=== PATIENT | male | born 1940 | race Caucasian/White ===

== ENCOUNTER 2017-08-14 03:57 | Emergency (ER) | payer MEDICARE ==
[~2017-08-14] VITALS: Ht 182.9 cm; Wt 103.7 kg
[~2017-08-14 03:57] MED LIST: ASPI-1265 PO; CALC-1050 PO; FOLI1TAB16 PO; LISI-600 PO; LOPE-144; METO50TA7 PO; MULT-1074 PO; OMEP-84 PO; THI100T PO; VITC500T PO; ZOLP-183 PO
[2017-08-14] MEDS ORDERED: aspirin 81mg tab.chew PO ONE (04:20)
[2017-08-14 04:42] LABS: BASOPHILS % (AUTO) 0.4 % (0-1); EOSINOPHILS # (AUTO) 0.5 X10'3 (0-0.9); EOSINOPHILS % (AUTO) 6.1 % (0-6); HEMATOCRIT 41.7 % (42.0-52.0); HEMOGLOBIN 14.5 g/dl (14.0-17.9); LYMPHOCYTES # (AUTO) 1.6 X10'3 (1.1-4.8); LYMPHOCYTES % (AUTO) 21.1 % (21-51); MEAN CORPUSCULAR HGB CONC 34.7 % (33.0-36.5); MEAN CORPUSCULAR VOLUME 89.4 FL (78-98); MEAN PLATELET VOLUME 10.4 FL (7.4-10.4); MONOCYTES # (AUTO) 0.8 X10'3 (0-0.9); MONOCYTES % (AUTO) 10.5 % (2-12); NEUTROPHILS # (AUTO) 4.6 X10'3 (1.8-7.7); NEUTROPHILS % (AUTO) 61.9 % (42-75); PLATELET COUNT 183 X10'3 (140-440); RED BLOOD COUNT 4.66 X10'6 (4.70-6.10); RED CELL DISTRIBUTION WIDTH 13.7 % (11.5-14.5); WHITE BLOOD COUNT 7.5 X10'3 (4.5-11.0)
[2017-08-14 05:05] LABS: ALANINE AMINOTRANSFERASE 35 U/L (12-78); ALBUMIN 3.5 G/DL (3.4-5.0); ALBUMIN/GLOBULIN RATIO 1.2 (1.1-1.5); ALKALINE PHOSPHATASE 57 IU/L (46-116); ANION GAP 8 (8-16); ASPARTATE AMINO TRANSFERASE 18 U/L (10-37); BILIRUBIN,TOTAL 0.5 MG/DL (0.1-1.0); BLOOD UREA NITROGEN 17 MG/DL (7-18); BUN/CREATININE RATIO 19.1 (5.4-32.0); CALCIUM 8.3 MG/DL (8.5-10.1); CHLORIDE 109 MMOL/L (99-107); CREATININE 0.89 MG/DL (0.60-1.10); GLUCOSE 115 MG/DL (70-104); POTASSIUM 4.3 MMOL/L (3.5-5.1); SODIUM 143 MMOL/L (135-145); TOTAL CARBON DIOXIDE 25.6 MMOL/L (24-32); TOTAL PROTEIN 6.5 G/DL (6.4-8.2); eGFR 83 ML/MIN
[2017-08-14] MEDS ORDERED: SIME125T7 PO (05:12)
[2017-08-14] MEDS ORDERED: SOTA80TA69 PO (05:12)
[2017-08-14] MEDS ORDERED: VITA1CAP (05:12)
[2017-08-14] MEDS ORDERED: FERR324T4 PO (05:12)
[2017-08-14] MEDS ORDERED: HYDR-565 PO (05:12)
[2017-08-14] MEDS ORDERED: CEPH500T PO (05:12)
[2017-08-14 05:33] LABS: D-DIMER < 0.19 MG/L FEU (0-0.50)
[2017-08-14] MEDS ORDERED: LORA-512 PO (05:34)
[2017-08-14] MEDS ORDERED: KEN0.1O TP (05:34)
[2017-08-14] MEDS ORDERED: ECON15CR2 TP (05:34)
[2017-08-14] MEDS ORDERED: WARF5TAB7 PO (05:34)
[2017-08-14] MEDS ORDERED: MICO57CR2 TP (05:34)
[2017-08-14] MEDS ORDERED: COU7.5T PO (05:34)
[2017-08-14] MEDS ORDERED: LORA1TAB PO (05:34)
[2017-08-14] MEDS ORDERED: HYDR28CR29 (05:34)
[2017-08-14] MEDS ORDERED: DOXY25PO2 (05:34)
[2017-08-14 05:37] VITALS: BP 126/68
[2017-08-14 07:07] LABS: LARGE PLATELETS FEW; PLATELET ESTIMATE NORMAL
== END 2017-08-14 06:28 | disposition home or self-care (01) ==
LOC: ER 03:58
DX: R00.2 Palpitations (principal); I48.91 Unspecified atrial fibrillation; E78.00 Pure hypercholesterolemia, unspecified; I50.9 Heart failure, unspecified; Z95.1 Presence of aortocoronary bypass graft; Z79.01 Long term (current) use of anticoagulants
CPT/HCPCS: 36415; 71045; 80053; 83735; 83880; 84484; 85025; 85379; 93005; 99285

== ENCOUNTER 2018-08-08 12:46 | Emergency (ER) | payer MEDICARE ==
[~2018-08-08] VITALS: Ht 182.9 cm; Wt 100.0 kg
[~2018-08-08 12:46] MED LIST changes: -ASPI-1265 PO; +CEPH500T PO; +COU7.5T PO; +DOXY25PO2; +ECON15CR2 TP; +FERR324T4 PO; -FOLI1TAB16 PO; +HYDR-4353 PO; +HYDR28CR29; +KEN0.1O TP; -LISI-600 PO; +LORA-512 PO; +LORA1TAB PO; -METO50TA7 PO; +MICO57CR2 TP; +SIME125T7 PO; +SOTA80TA73 PO; -THI100T PO; +VITA1CAP; +WARF-55 PO
[2018-08-08] MEDS ORDERED: normal saline 1000ML IV soln IVB ONE (13:00)
[2018-08-08 13:26] LABS: BASOPHILS # (AUTO) 0.1 X10'3 (0-0.2); BASOPHILS % (AUTO) 1.1 % (0-1); EOSINOPHILS # (AUTO) 0.3 X10'3 (0-0.9); HEMATOCRIT 46.2 % (42.0-52.0); LYMPHOCYTES # (AUTO) 1.4 X10'3 (1.1-4.8); MONOCYTES # (AUTO) 0.5 X10'3 (0-0.9); NEUTROPHILS # (AUTO) 5.8 X10'3 (1.8-7.7); RED BLOOD COUNT 5.05 X10'6 (4.70-6.10)
[2018-08-08 13:28] LABS: EOSINOPHILS % (AUTO) 3.5 % (0-6); HEMOGLOBIN 15.3 g/dl (14.0-17.9); LYMPHOCYTES % (AUTO) 17.4 % (21-51); MEAN CORPUSCULAR HEMOGLOBIN 30.3 PG (27.0-31.0); MEAN CORPUSCULAR HGB CONC 33.1 g/dL (33.0-36.5); MEAN CORPUSCULAR VOLUME 91.5 FL (78-98); MEAN PLATELET VOLUME 10.9 FL (7.4-10.4); MONOCYTES % (AUTO) 6.3 % (2-12); NEUTROPHILS % (AUTO) 71.7 % (42-75); PLATELET COUNT 242 X10'3 (140-440); RED CELL DISTRIBUTION WIDTH 12.9 % (11.5-14.5); WHITE BLOOD COUNT 8.1 X10'3 (4.5-11.0)
[2018-08-08 13:43] LABS: INR 3.3 INR; PARTIAL THROMBOPLASTIN TIME 47 SECONDS (22-32); PROTHROMBIN TIME 31.2 SECONDS (9.0-12.0)
[2018-08-08 14:03] LABS: CLARITY,URINE SLIGHTLY CLOUDY (Clear); COLOR,URINE YELLOW (Yellow); GLUCOSE, URINE NEGATIVE (Neg); KETONES,URINE NEGATIVE (Neg); LEUKOCYTE ESTERASE ,URINE MODERATE (Neg); NITRITES, URINE POSITIVE (Neg); OCCULT BLOOD,URINE SMALL (Neg); PROTEIN,URINE NEGATIVE (Neg); UROBILINOGEN,URINE 0.2 E.U/dL (0.2-1.0)
[2018-08-08 14:04] LABS: UA COLLECTION TYPE FOLEY CATH
[2018-08-08] MEDS ORDERED: meclizine 12.5mg tablet PO ONE (14:05)
[2018-08-08] MEDS ORDERED: MECL-111 PO (14:10)
[2018-08-08] MEDS ORDERED: CEPH500C5 PO (14:10)
[2018-08-08 14:11] LABS: WBC,URINE 30-50 /HPF (0-4)
[2018-08-08 14:12] LABS: AMORPHOUS PHOSPHATES 1+; BACTERIA,URINE 1+ /HPF (Neg); MUCUS STRANDS FEW /LPF (Neg); SQUAMOUS EPITHELIAL CELL,UR NONE SEEN /LPF (FEW)
[2018-08-08 14:18] VITALS: BP 131/60
[2018-08-08 14:26] LABS: ALANINE AMINOTRANSFERASE 31 U/L (12-78); ALBUMIN 3.6 G/DL (3.4-5.0); ALBUMIN/GLOBULIN RATIO 1.1 (1.1-1.5); ALKALINE PHOSPHATASE 71 IU/L (46-116); ANION GAP 6 (8-16); ASPARTATE AMINO TRANSFERASE 20 U/L (10-37); BILIRUBIN,TOTAL 0.8 MG/DL (0.1-1.0); BLOOD UREA NITROGEN 16 MG/DL (7-18); CHLORIDE 106 MMOL/L (99-107); CREATININE 0.94 MG/DL (0.60-1.10); GLUCOSE 156 MG/DL (70-104); POTASSIUM 4.3 MMOL/L (3.5-5.1); SODIUM 140 MMOL/L (135-145); TOTAL CARBON DIOXIDE 28.5 MMOL/L (24-32); TOTAL PROTEIN 6.9 G/DL (6.4-8.2); eGFR 78 ML/MIN
[2018-08-08 14:28] LABS: MAGNESIUM 1.9 MG/DL (1.5-2.4)
== END 2018-08-08 14:29 | disposition home or self-care (01) ==
LOC: ER 12:46
DX: R42 Dizziness and giddiness (principal); E86.0 Dehydration; I48.91 Unspecified atrial fibrillation; E78.00 Pure hypercholesterolemia, unspecified; F41.9 Anxiety disorder, unspecified; Z87.440 Personal history of urinary (tract) infections; Z87.891 Personal history of nicotine dependence; Z79.01 Long term (current) use of anticoagulants; Z88.1 Allergy status to other antibiotic agents; Z88.5 Allergy status to narcotic agent; Z88.6 Allergy status to analgesic agent
CPT/HCPCS: 36415; 70450; 71045; 80053; 81001; 83735; 83880; 84484; 85025; 85610; 85730; 87077; 87088; 87186; 93005; 96360; 99284; J7030; J8597

== ENCOUNTER 2019-04-10 09:21 | Emergency (ER) | payer MEDICARE ==
[~2019-04-10] VITALS: Ht 182.9 cm; Wt 100.9 kg
[~2019-04-10 09:21] MED LIST changes: +CEPH500C5 PO; -DOXY25PO2; +DOXY25PO2 PO; +ECON15CR13 TP; -ECON15CR2 TP; -HYDR28CR29; +HYDR28CR29 TOP; -LOPE-144; +LOPE-144 PO; +MECL-111 PO
[2019-04-10] MEDS ORDERED: normal saline 1000ML IV soln IVB ONE (11:05)
--- NOTE | 2019-04-10 12:07 | NUR ---
BACK FROM CT SCAN
[2019-04-10 12:10] LABS: ALANINE AMINOTRANSFERASE 31 U/L (12-78); ALBUMIN 3.7 G/DL (3.4-5.0); ALKALINE PHOSPHATASE 54 IU/L (46-116); ANION GAP 6 (8-16); BILIRUBIN,TOTAL 1.6 MG/DL (0.1-1.0); BLOOD UREA NITROGEN 12 MG/DL (7-18); BUN/CREATININE RATIO 12.9 (5.4-32.0); CALCIUM 9.2 MG/DL (8.5-10.1); CHLORIDE 105 MMOL/L (99-107); CREATININE 0.93 MG/DL (0.60-1.10); GLUCOSE 113 MG/DL (70-104); LIPASE 141 U/L (73-393); SODIUM 139 MMOL/L (135-145); TOTAL CARBON DIOXIDE 28.2 MMOL/L (24-32); TOTAL PROTEIN 7.4 G/DL (6.4-8.2); eGFR 78 ML/MIN
[2019-04-10 12:16] LABS: ASPARTATE AMINO TRANSFERASE 38 U/L (10-37); POTASSIUM 4.9 MMOL/L (3.5-5.1)
[2019-04-10 12:27] LABS: BASOPHILS # (AUTO) 0.1 X10'3 (0-0.2); BASOPHILS % (AUTO) 0.4 % (0-1); EOSINOPHILS # (AUTO) 0.1 X10'3 (0-0.9); HEMATOCRIT 47.1 % (42.0-52.0); HEMOGLOBIN 15.9 g/dl (14.0-17.9); LYMPHOCYTES # (AUTO) 0.8 X10'3 (1.1-4.8); LYMPHOCYTES % (AUTO) 6.2 % (21-51); MEAN CORPUSCULAR HEMOGLOBIN 31.1 PG (27.0-31.0); MEAN CORPUSCULAR HGB CONC 33.8 g/dL (33.0-36.5); MEAN CORPUSCULAR VOLUME 91.9 FL (78-98); MEAN PLATELET VOLUME 10.9 FL (7.4-10.4); MONOCYTES % (AUTO) 7.5 % (2-12); NEUTROPHILS # (AUTO) 11.4 X10'3 (1.8-7.7); NEUTROPHILS % (AUTO) 84.9 % (42-75); PLATELET COUNT 205 X10'3 (140-440); RED BLOOD COUNT 5.13 X10'6 (4.70-6.10); RED CELL DISTRIBUTION WIDTH 13.8 % (11.5-14.5); WHITE BLOOD COUNT 13.4 X10'3 (4.5-11.0)
--- NOTE | 2019-04-10 12:27 | NUR ---
BLADDER SCAN: ALL QUADRANTS EXCEPT RIGHT LOWER QUADRANT , NO FLUID RLQ = 98 ML
--- NOTE | 2019-04-10 12:29 | NUR ---
GAVE PATIENT'S MEDICATION LIST TO PHARMACIST
[2019-04-10 12:36] LABS: CLARITY,URINE CLEAR (Clear); COLOR,URINE YELLOW (Yellow); GLUCOSE, URINE NEGATIVE (Neg); KETONES,URINE NEGATIVE (Neg); LEUKOCYTE ESTERASE ,URINE MODERATE (Neg); NITRITES, URINE POSITIVE (Neg); OCCULT BLOOD,URINE MODERATE (Neg); PROTEIN,URINE TRACE mg/dl (Neg); UROBILINOGEN,URINE 0.2 E.U/dL (0.2-1.0)
[2019-04-10 12:39] LABS: UA COLLECTION TYPE FOLEY CATH
[2019-04-10 12:41] LABS: SQUAMOUS EPITHELIAL CELL,UR FEW /LPF (FEW)
[2019-04-10 12:42] LABS: MUCUS STRANDS FEW /LPF (Neg)
[2019-04-10 12:43] LABS: BACTERIA,URINE 2+ /HPF (Neg)
[2019-04-10] MEDS ORDERED: CLOT15CR5 TOP (12:46)
[2019-04-10] MEDS ORDERED: GUAI600T45 PO (12:46)
[2019-04-10] MEDS ORDERED: ATOR10TA70 PO (12:46)
[2019-04-10] MEDS ORDERED: CHOL100034 PO (12:46)
[2019-04-10] MEDS ORDERED: LACT1CAP65 PO (12:46)
[2019-04-10] MEDS ORDERED: VITA-268 PO (12:46)
[2019-04-10] MEDS ORDERED: CefTRIAXone/D5W-Rocephin 1gm 50 ML IV ONE (12:55)
[2019-04-10] MEDS ORDERED: CIPR-230 PO (12:58)
[2019-04-10 14:03] VITALS: BP 133/72
== END 2019-04-10 14:10 | disposition home or self-care (01) ==
LOC: ER 09:22
DX: T83.511A Infection and inflammatory reaction due to indwelling urethral catheter, initial encounter (principal); N39.0 Urinary tract infection, site not specified; I48.91 Unspecified atrial fibrillation; E78.00 Pure hypercholesterolemia, unspecified; Z98.890 Other specified postprocedural states; Z88.6 Allergy status to analgesic agent; Z88.5 Allergy status to narcotic agent; Z88.1 Allergy status to other antibiotic agents; Z79.899 Other long term (current) drug therapy; Z79.01 Long term (current) use of anticoagulants; Z85.51 Personal history of malignant neoplasm of bladder; Y92.89 Other specified places as the place of occurrence of the external cause
CPT/HCPCS: 36415; 74176; 80053; 81001; 83690; 85025; 87077; 87088; 87186; 96365; 99284; J0696; J7040

== ENCOUNTER 2024-04-23 08:54 | Outpatient (CLI) | payer MEDICARE ==
[~2024-04-23 08:54] MED LIST changes: +ATOR10TA70 PO; -CEPH500C5 PO; +CHOL100034 PO; +CLOT15CR35 TOP; -ECON15CR13 TP; +ECON15CR4 TP; +GUAI600T45 PO; -HYDR28CR29 TOP; +HYDR28CR96 TOP; +LACT1CAP65 PO; -LORA1TAB PO; -MECL-111 PO; +VITA-268 PO; -VITA1CAP; -ZOLP-183 PO
== END 2024-04-23 23:59 | disposition home or self-care (01) ==
LOC: US 08:54
PROVIDERS: ATTEND Family Medicine
DX: N28.1 Cyst of kidney, acquired (principal); R10.32 Left lower quadrant pain
CPT/HCPCS: 76770

== ENCOUNTER → 2024-09-17 | Outpatient (CLI) | payer MEDICARE | END | disposition home or self-care (01) | LOC: MRI02 10:31 | PROVIDERS: ATTEND Family Medicine | DX: M51.16 Intervertebral disc disorders with radiculopathy, lumbar region (principal); M54.50 Low back pain, unspecified; M48.07 Spinal stenosis, lumbosacral region; M47.817 Spondylosis without myelopathy or radiculopathy, lumbosacral region | CPT/HCPCS: 72148 ==